=== PATIENT | female | born 1970 | race Caucasian/White ===

== ENCOUNTER → 2016-12-18 | Outpatient (CLI) | payer OTHER ==
[~2016-12-18] MED LIST: AMOX500C3 PO; ATV/1 PO; BUPR75TA20 PO; DOXE25CA2 PO; FLUC150T PO; METH20TA66 PO; OXYC-57 PO; PARO1TAB29 PO; RST/30 PO; RTL20 PO
== END | disposition home or self-care (01) ==
LOC: C.LABSPEC 13:12
PROVIDERS: ATTEND Obstetrics & Gynecology
DX: R10.2 Pelvic and perineal pain (principal)

== ENCOUNTER 2017-03-23 10:00 | Emergency (ER) | payer OTHER ==
[~2017-03-23] VITALS: Ht 157.5 cm; Wt 121.3 kg
[~2017-03-23 10:00] MED LIST changes: -AMOX500C3 PO; -DOXE25CA2 PO; -FLUC150T PO; -METH20TA66 PO; -OXYC-57 PO; -RST/30 PO
[2017-03-23 10:17] VITALS: TEMP 36.7; Ht 157.5 cm; Wt 121.3 kg
[2017-03-23] MEDS ORDERED: RST/30 PO (11:02)
[2017-03-23] MEDS ORDERED: METH20TA66 PO (11:02)
[2017-03-23] MEDS ORDERED: DOXE25CA2 PO (11:02)
[2017-03-23] MEDS ORDERED: ONDANSETRON INJ 2 MG/ML 2 ML VIAL IV STA (11:16)
[2017-03-23] MEDS ORDERED: KETOROLAC TROMETHAMINE 30 MG/ML VIAL IV STA (11:16)
[2017-03-23] MEDS ORDERED: MoRPHine SULFATE 4 MG/ML 1 ML CARP\\VIAL IV STA (11:16)
[2017-03-23] MEDS ORDERED: AMPICILLIN/SULBACTAM SOD INJ 3,000 MG in SODIUM CHLORIDE 0.9% 100ML 100 ML IV ONE (11:30)
[2017-03-23 11:45] LABS: BASO % 0.3 %; BASO ABS # 0.03 K/uL (0-0.2); COMPLETE YES; EOS % 1.6 %; HEMATOCRIT 43.2 % (37-47); IG% 0.2 %; LYMPH ABS # 1.87 K/uL (1.2-3.4); MEAN CELL VOLUME 89.4 fL (80-100); MEAN CORPUSCULAR HEMOGLOBIN 29.2 pg (25-34); MEAN CORPUSCULAR HGB CONC 32.6 g/dl (32-36); MEAN PLATELET VOLUME 8.9 fL (7.4-10.4); MONO % 8.2 %; NEUT % 68.7 %; PLATELET COUNT 340 K/uL (130-400); RED BLOOD COUNT 4.83 M/uL (4.2-5.4); WHITE BLOOD COUNT 8.89 K/uL (4.8-10.8)
[2017-03-23 12:05] LABS: BUN/CREATININE RATIO 9.7 (10-20); CALCIUM 8.3 mg/dl (8.5-10.1); CREATININE 0.78 mg/dl (0.60-1.20); POTASSIUM 3.8 mmol/L (3.5-5.1)
--- NOTE | 2017-03-23 12:14 | EMERGENCY ROOM VISIT NOTE ---
History Report prepared by Rosi: Julieta Sullivan Under the Supervision of: Dr. Tanvi Murdock M.D. First contact with patient: 10:57 Chief Complaint: DENTAL PAIN Stated Complaint: SEVERE MOUTH PAIN Nursing Triage Summary: Right side of the face is swollen. History of Present Illness The patient is a 46 year old female who presents to the Emergency Room with complaints of worsening right maxillary edema that started last night. She is also experiencing worsening upper right dental pain. The patient has not noticed any pus draining from her mouth, but she states that there are "white pockets" in the area of the pain. She took Tylenol and ibuprofen last night for her pain, but they offered her minimal relief. The patient states that she is scheduled to have her right upper teeth removed this Thursday by her dentist in [place]. The patient called her dentist and he recommended coming into the ED. The patient is not on any antibiotics currently. The patient is a smoker, but states that she has not smoked recently secondary to her pain. Source of History: patient Onset: last night Position: jaw (right maxillary) Quality: other (edema) Timing: worsening Note: worsening upper right dental pain, no pus drainage Review of Systems See HPI for pertinent positives & negatives. A total of 10 systems reviewed and were otherwise negative. Past Medical & Surgical Medical Problems: (1) ANXIETY STATE NOS (2) CHOLELITH W AC CHOLECYST (3) Depression (4) FEM PELV INFLAM DIS NOS (5) URIN TRACT INFECTION NOS Family History Cancer Diabetes mellitus Gallbladder disease Hypertension Seizures Social History Smoking Status: Current Every Day Smoker Alcohol Use: occasionally Drug Use: none Marital Status: single Housing Status: lives with family Occupation Status: employed Current/Historical Medications Scheduled Amoxicillin (Amoxil), 500 MG PO TID Doxepin Hcl (Sinequan), 75 MG PO HS Fluconazole (Diflucan), 150 MG PO once Methylphenidate HCl (Methylphenidate HCl), 10 MG PO BID Paroxetine (Paxil), 40 MG PO DAILY Temazepam (Restoril), 30 MG PO HS Scheduled PRN Lorazepam (Ativan), 1 MG PO DAILY PRN for Anxiety Oxycodone/Acetaminophen 5MG/325MG (Percocet 5MG/325MG), 1-2 TABS PO Q6 PRN for Pain Allergies Coded Allergies: No Known Allergies (Unverified , 06/11/16) Physical Exam Vital Signs Date Time Temp Pulse Resp B/P (MAP) Pulse Ox O2 Delivery O2 Flow Rate FiO2 03/23/17 13:25 88 16 142/105 98 03/23/17 12:32 88 16 157/93 96 Room Air 03/23/17 11:50 86 16 95 Room Air 03/23/17 10:17 36.7 72 20 139/100 98 Room Air Physical Exam Vital signs reviewed. General: Well-appearing female, in no significant distress. HEENT: No scleral icterus, PERRLA, mild right maxillary cheek swelling and tenderness, right upper gum is notable for multiple broke teeth at the gum line , swelling without fluctuance, no appreciable drainage, no palpable lymphadenopathy, neck supple. Atraumatic. Musculoskeletal: Atraumatic, no peripheral edema. Neurologic: Patient awake alert and oriented x 3 Skin: Warm, dry, no rash Medical Decision & Procedures Laboratory Results 03/23/17 11:30 Red Blood Count 4.83, Mean Corpuscular Volume 89.4, Mean Corpuscular Hemoglobin 29.2, Mean Corpuscular Hemoglobin Concent 32.6, Mean Platelet Volume 8.9, Neutrophils (%) (Auto) 68.7, Lymphocytes (%) (Auto) 21.0, Monocytes (%) (Auto) 8.2, Eosinophils (%) (Auto) 1.6, Basophils (%) (Auto) 0.3, Neutrophils # (Auto) 6.10, Lymphocytes # (Auto) 1.87, Monocytes # (Auto) 0.73, Eosinophils # (Auto) 0.14, Basophils # (Auto) 0.03 03/23/17 11:30 Test 03/23/17 11:30 White Blood Count 8.89 K/uL (4.8-10.8) Red Blood Count 4.83 M/uL (4.2-5.4) Hemoglobin 14.1 g/dL (12.0-16.0) Hematocrit 43.2 % (37-47) Mean Corpuscular Volume 89.4 fL (80-100) Mean Corpuscular Hemoglobin 29.2 pg (25-34) Mean Corpuscular Hemoglobin Concent 32.6 g/dl (32-36) Platelet Count 340 K/uL (130-400) Mean Platelet Volume 8.9 fL (7.4-10.4) Neutrophils (%) (Auto) 68.7 % Lymphocytes (%) (Auto) 21.0 % Monocytes (%) (Auto) 8.2 % Eosinophils (%) (Auto) 1.6 % Basophils (%) (Auto) 0.3 % Neutrophils # (Auto) 6.10 K/uL (1.4-6.5) Lymphocytes # (Auto) 1.87 K/uL (1.2-3.4) Monocytes # (Auto) 0.73 K/uL (0.11-0.59) Eosinophils # (Auto) 0.14 K/uL (0-0.5) Basophils # (Auto) 0.03 K/uL (0-0.2) RDW Standard Deviation 45.4 fL (36.4-46.3) RDW Coefficient of Variation 13.8 % (11.5-14.5) Immature Granulocyte % (Auto) 0.2 % Immature Granulocyte # (Auto) 0.02 K/uL (0.00-0.02) Anion Gap 9.0 mmol/L (3-11) Est Creatinine Clear Calc Drug Dose 114.2 ml/min Estimated GFR () 107.2 Estimated GFR (Non- 92.5 BUN/Creatinine Ratio 9.7 (10-20) Calcium Level 8.3 mg/dl (8.5-10.1) Laboratory results per my review. Medications Administered Medications (Trade) Dose Ordered Sig/Kitty Route Start Time Stop Time Status Last Admin Dose Admin Morphine Sulfate (MoRPHine SULFATE INJ) 4 mg NOW STAT IV 03/23/17 11:16 03/23/17 11:18 DC 03/23/17 11:38 4 MG Ondansetron HCl (Zofran Inj) 4 mg NOW STAT IV 03/23/17 11:16 03/23/17 11:18 DC 03/23/17 11:39 4 MG Ampicillin Sodium/ Sulbactam Sodium 3000 mg/Sodium Chloride 108 ml @ 200 mls/hr ONE ONCE IV 03/23/17 11:30 03/23/17 12:02 DC 03/23/17 11:39 200 MLS/HR Ketorolac Tromethamine (Toradol Inj) 30 mg NOW STAT IV 03/23/17 11:16 03/23/17 11:18 DC 03/23/17 11:39 30 MG ED Course 1115: Past medical records reviewed. The patient was evaluated in room C9. A complete history and physical examination was performed. 1116: Ordered Toradol Inj 30 mg IV, Zofran Inj 4 mg IV, Morphine Sulfate 4 mg IV 1130: Ordered Ampicillin Sodium/Sulbactam Sodium 3000 mg/Sodium Chloride 108 ml @ 200 mls/hr IV 1304: Upon reevaluation, the patient appeared to have improvement of her symptoms. I discussed findings with her. She verbalized agreement of the treatment plan. She was discharged home. Medical Decision Differentials include abscess, cellulitis, fracture tooth. Medication Reconciliation: I attest that I have personally reviewed the patient' s current medication list. Blood Pressure Screening: Patient was found to have an elevated blood pressure and was referred to their primary doctor for recheck and further treatment. This patient was evaluated and appeared to be in some discomfort. IV access was obtained and laboratory work was drawn. Patient was hydrated with normal saline solution, given IV morphine and Zofran for his discomfort. Patient was given Unasyn 3 g IV. There is no appreciable abscess on physical exam. The patient is markedly tender to the gumline along the right maxilla. Patient was informed of the findings. CT scan of the head was performed and reveals no evidence of acute abscess or infection. Patient will be discharged to care of his family to return to the ER for worsening of symptoms or any medical concerns. [place] Drug Monitoring Program Search Results: patient reviewed within database, see additional documentation Drug Monitoring Findings: Prescribed chronic benzodiazepines Impression Primary Impression: Dental infection Scribe Attestation The scribe's documentation has been prepared under my direction and personally reviewed by me in its entirety. I confirm that the note above accurately reflects all work, treatment, procedures, and medical decision making performed by me. Departure Information Dispostion Home / Self-Care Prescriptions Fluconazole (DIFLUCAN) 150 Mg Tab 150 MG PO once, #1 TAB Prov: Tanvi Murdock M.D. 03/23/17 Oxycodone/Acetaminophen 5MG/325MG (PERCOCET 5MG/325MG) Tab 1-2 TABS PO Q6 Y for Pain, #30 TAB Prov: Tanvi Murdock M.D. 03/23/17 Amoxicillin (AMOXIL) 500 Mg Cap 500 MG PO TID, #21 CAP Prov: Tanvi Murdock M.D. 03/23/17 Referrals No Doctor, Assigned (PCP) Forms HOME CARE DOCUMENTATION FORM, IMPORTANT VISIT INFORMATION Patient Instructions My [facility] Additional Instructions Diagnosis: Dental infection Amoxicillin 500 mg 3 times a day for 7 days. Percocet 1-2 tabs every 6 hours as needed for severe pain. Do not drive or take Tylenol with this medication. Ibuprofen 600 mg every 6 hours as needed for pain with food. Diflucan 150 mg tab once to prevent vaginal yeast infection on amoxicillin Drink plenty of clear fluids. Follow up with your dentist on Thursday for dental extractions as scheduled. Return to the ER for worsening of symptoms or any medical concerns.
[2017-03-23] MEDS ORDERED: OXYC-57 PO (12:48)
[2017-03-23] MEDS ORDERED: AMOX500C3 PO (12:48)
[2017-03-23] MEDS ORDERED: FLUC150T PO (13:07)
[2017-03-23 13:25] VITALS: BP 142/105; PULSE 88; O2SAT 98
== END 2017-03-23 13:26 | disposition home or self-care (01) ==
LOC: C.EDB 10:02 → C.EDC 13:26
DX: K04.7 Periapical abscess without sinus (principal); F41.9 Anxiety disorder, unspecified; F32.9 Major depressive disorder, single episode, unspecified; N73.9 Female pelvic inflammatory disease, unspecified; Z87.440 Personal history of urinary (tract) infections; Z80.9 Family history of malignant neoplasm, unspecified; Z83.3 Family history of diabetes mellitus; Z83.79 Family history of other diseases of the digestive system; Z82.49 Family history of ischemic heart disease and other diseases of the circulatory system; F17.210 Nicotine dependence, cigarettes, uncomplicated; Z79.899 Other long term (current) drug therapy

== ENCOUNTER 2019-05-18 15:12 | Inpatient (IN) ==
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
[2019-05-18] MEDS ORDERED: LORazepam 1 MG TAB SL STA (15:43)
[2019-05-18] MEDS ORDERED: SODIUM CHLORIDE 0.9% 1000ML 1,000 ML IV SCH (15:45)
[2019-05-18 16:07] LABS: Basophils # (auto) 0.03 K/uL (0-0.2); Basophils % (auto) 0.3 %; Eosinophils # (auto) 0.12 K/uL (0-0.5); Eosinophils % (auto) 1.1 %; Hemoglobin 14.4 g/dL (12.0-16.0); Immature Granulocytes # (auto) 0.03 K/uL (0.00-0.02); Immature Granulocytes % (auto) 0.3 %; Lymphocytes # (auto) 2.49 K/uL (1.2-3.4); Lymphocytes % (auto) 22.4 %; Mean Corpuscular Hgb Conc 34.3 g/dL (32-36); Mean Corpuscular Volume 87.3 fL (80-100); Mean Platelet Volume 9.1 fL (7.4-10.4); Monocytes # (auto) 0.75 K/uL (0.11-0.59); Monocytes % (auto) 6.7 %; Neutrophils # (auto) 7.71 K/uL (1.4-6.5); Neutrophils % (auto) 69.2 %; Platelet Count 273 K/uL (130-400); RDW Coefficient of Variation 16.8 % (11.5-14.5); RDW Standard Deviation 53.6 fL (36.4-46.3); Red Blood Count 4.81 M/uL (4.2-5.4); White Blood Count 11.13 K/uL (4.8-10.8)
[2019-05-18 16:32] LABS: Alanine Aminotransferase 20 U/L (12-78); Aspartate Aminotransferase 19 U/L (15-37); BUN Creatinine Ratio 8.9 (10-20); Blood Urea Nitrogen 6 mg/dl (7-18); Calcium 8.7 mg/dl (8.5-10.1); Carbon Dioxide 20 mmol/L (21-32); Chloride 102 mmol/L (98-107); Creatinine Clr Calc Pharmacy 125.5 ml/min; Est GFR (African American) 120.4; Est GFR (Non-African American) 103.9; Glucose 57 mg/dl (70-99); Magnesium 2.3 mg/dl (1.8-2.4); Potassium 3.4 mmol/L (3.5-5.1); Sodium 136 mmol/L (136-145)
[2019-05-18 16:35] LABS: Amphetamines+Metham, Urine Neg (Neg); Barbiturates, Urine Pos (Neg); Benzodiazepine, Urine Neg (Neg); Cocaine, Urine Neg (Neg); MDMA (Ecstacy), Urine Neg (Neg); Methadone, Urine Neg (Neg); Opiate, Urine Neg (Neg); Phencyclidine, Urine Neg (Neg)
[2019-05-18 16:36] LABS: Alkaline Phosphatase 134 U/L (45-117); Bilirubin,Total 0.3 mg/dl (0.2-1); Troponin I < 0.015 ng/ml (0-0.045)
[2019-05-18] MEDS ORDERED: IBUPROFEN 200 MG TAB PO STA (16:44)
[2019-05-18 16:53] LABS: Acetaminophen < 2 ug/ml (10-30); Salicylate 3.6 mg/dl (2.8-20)
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
[2019-05-18 19:25] LABS: Appearance Urine Clear (Clear); Bilirubin Urine Negative (Negative); Blood Urine Negative (Negative); Color Urine Yellow; Glucose Urine UA Negative (Negative); Ketones Urine 1+ (Negative); Leukocyte Esterase Urine Negative (Negative); Nitrite Urine Negative (Negative); Protein Urine Negative (Negative); Specific Gravity Urine 1.009 (1.000-1.030); Urobilinogen Urine Negative (Negative)
[2019-05-18] MEDS ORDERED: LORazepam 1 MG/2 ML VIAL IV STA (19:28)
[2019-05-18] MEDS ORDERED: ACETAMINOPHEN 325 MG TAB PO PRN ×2 (20:22→23:00)
[2019-05-18] MEDS ORDERED: BISMUTH SUBSALICYLATE PER ML OMNICELL CHARGE PO PRN ×2 (20:22→23:00)
[2019-05-18] MEDS ORDERED: SODIUM CHLORIDE 0.65% NA SOLN 45 ML (OCEAN) PRN ×2 (20:22→23:00)
[2019-05-18] MEDS ORDERED: ALUMINUM/MAGNESIUM SUSP 30 ML UDC PO PRN ×2 (20:22→23:00)
[2019-05-18] MEDS ORDERED: MAGNESIUM HYDROXIDE SUSP 30 ML UDC PO PRN ×2 (20:22→23:00)
[2019-05-18] MEDS ORDERED: clonazePAM 0.5 MG TAB PO PRN (21:01)
[2019-05-18] MEDS: TEMAZEPAM 15 MG CAPSULE PO SCH (21:52)
[2019-05-19] MEDS ORDERED: PARoxetine HCl 20 MG TAB PO SCH (09:00)
[2019-05-19] MEDS ORDERED: METHYLPHENIDATE HCL 10 MG TABLET PO SCH (09:00)
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
[2019-05-19] MEDS: clonazePAM 0.5 MG TAB PO PRN (15:51)
[2019-05-19] MEDS: TEMAZEPAM 15 MG CAPSULE PO SCH (21:01)
[2019-05-20] MEDS: PARoxetine HCl 20 MG TAB PO SCH (09:21)
[2019-05-20] MEDS: clonazePAM 0.5 MG TAB PO PRN ×2 (09:21→17:56)
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
[2019-05-20] MEDS: IBUPROFEN 600 MG TAB PO PRN (10:43)
[2019-05-20] MEDS: TEMAZEPAM 15 MG CAPSULE PO SCH (21:02)
[2019-05-21] MEDS: PARoxetine HCl 20 MG TAB PO SCH (08:46)
[2019-05-21] MEDS: clonazePAM 0.5 MG TAB PO PRN ×2 (10:23→18:52)
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
[2019-05-21] MEDS: PRAZOSIN HCL 1 MG CAP PO SCH (21:27)
[2019-05-21] MEDS: TEMAZEPAM 15 MG CAPSULE PO SCH (21:27)
[2019-05-22] MEDS: PARoxetine HCl 20 MG TAB PO SCH (08:43)
[2019-05-22] MEDS: clonazePAM 0.5 MG TAB PO PRN ×2 (08:47→19:56)
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
[2019-05-22] MEDS: IBUPROFEN 600 MG TAB PO PRN (17:55)
[2019-05-22] MEDS: PRAZOSIN HCL 1 MG CAP PO SCH (20:51)
[2019-05-22] MEDS: TEMAZEPAM 15 MG CAPSULE PO SCH (20:52)
[2019-05-23] MEDS: clonazePAM 0.5 MG TAB PO PRN (08:45)
[2019-05-23] MEDS: PARoxetine HCl 20 MG TAB PO SCH (08:45)
--- NOTE | 2019-05-23 09:26 | Discharge Summary ---
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 No
[2019-05-23 15:30] LABS: Amobarbital, Urine Conf NEGATIVE NG/ML (CUTOFF=100); Butalbital, Urine 404 NG/ML (CUTOFF=100); Pentobarbital, Urine Conf NEGATIVE NG/ML (CUTOFF=100); Phenobarbital, Urine NEGATIVE NG/ML (CUTOFF=100); Secobarbital, Urine Conf NEGATIVE NG/ML (CUTOFF=100)
== END 2019-05-23 12:04 | disposition home or self-care (01) | DRG 918 ==
LOC: ED 15:12 → 3S 20:36